=== PATIENT | male | born 1980 | race American Indian/Alaskan Native ===

== ENCOUNTER 2016-09-20 12:17 | Inpatient (IN) | payer OTHER ==
[2016-09-20 13:18] LABS: Basophils % (Auto) 0.8 % (0.0-1.8); Eosinophils % (Auto) 3.1 % (0.0-4.3); Hematocrit 40.9 % (35.5-45.6); Hemoglobin 13.9 gm/dl (11.8-15.2); Mean Corpuscular HGB Conc 34 % (32-34); Mean Corpuscular Hemoglobin 28 pg (28-32); Mean Corpuscular Volume 83 fl (84-94); Platelet Count 136 K/mm3 (140-440); Red Blood Count 4.96 M/mm3 (3.65-5.03); Red Cell Distribution Width 15.5 % (13.2-15.2)
[2016-09-20 13:27] LABS: Anion Gap 17 mmol/L; Blood Urea Nitrogen 10 mg/dL (9-20); Calcium 8.8 mg/dL (8.4-10.2); Carbon Dioxide 22 mmol/L (22-30); Chloride 102.5 mmol/L (98-107); Glucose 104 mg/dL (75-100); Potassium 3.9 mmol/L (3.6-5.0); Sodium 138 mmol/L (137-145)
--- NOTE | 2016-09-20 22:43 | Emergency Department Report ---
HPI - General Chief Complaint: Altered Mental Status Time Seen by Provider: 09/20/16 22:28 - HPI HPI: Room 5 The patient is a 35-year-old male presenting with a chief complaint of forgetfulness and headache. The patient states he is concerned he may have carbon monoxide poisoning because 3-4 days ago he fell asleep in his car with the fan on and windows rolled up. The patient states his car was outdoors and not in an enclosed space/garage. The patient states the following day headache and forgetfulness. The patient states he frequently drops things from his hand sometimes because he forgets that it is there. Patient denies any preceding trauma. Patient denies any fevers. Patient admits to memory loss and headache for the past 3 days. Patient denies suicidal ideation Location: [see above] Duration: 3 days Quality: Headache, forgetfulness Severity: Moderate Modifying factors: [see above] Context: [see above] Mode of transportation: Unknown ED Past Medical Hx - Past Medical History Previous Medical History?: No - Surgical History Past Surgical History?: No - Family History Family history: no significant - Social History Smoking Status: Current Every Day Smoker (1/3 pack per day) Substance Use Type: None (denies illicit drug use), Alcohol (occasional) - Medications Home Medications: Home Medications Medication Instructions Recorded Confirmed Last Taken Type Famotidine [Pepcid] 20 mg PO BID #60 tablet 08/22/13 Unknown Rx Loratadine [Claritin] 10 mg PO DAILY #30 tablet 08/22/13 Unknown Rx predniSONE [Deltasone] 50 mg PO QDAY #5 tab 08/22/13 Unknown Rx ED Review of Systems ROS: Stated complaint: CONFUSED/HEADACHE Other details as noted in HPI Comment: All other systems reviewed and negative Constitutional: denies: chills, fever Eyes: denies: eye pain, eye discharge, vision change ENT: denies: ear pain, throat pain Respiratory: denies: cough, shortness of breath, wheezing Cardiovascular: denies: chest pain, palpitations Endocrine: no symptoms reported Gastrointestinal: denies: abdominal pain, nausea, diarrhea Genitourinary: denies: urgency, dysuria Musculoskeletal: denies: back pain, joint swelling, arthralgia Skin: denies: rash, lesions Neurological: headache, other (memory loss) Psychiatric: denies: anxiety, depression, suicidal thoughts Hematological/Lymphatic: denies: easy bleeding, easy bruising Physical Exam - Physical Exam Vital Signs: Vital Signs 09/20/16 09/20/16 12:33 20:10 Temperature 98.2 F 98.4 F Pulse Rate 66 72 Respiratory 16 20 Rate Blood Pressure 121/80 126/81 O2 Sat by Pulse 100 100 Oximetry Physical Exam: GENERAL: The patient is well-developed well-nourished male sitting on stretcher not appearing to be in acute distress. [] HEENT: Normocephalic. Atraumatic. Extraocular motions are intact. Patient has moist mucous membranes. NECK: Supple. Trachea midline CHEST/LUNGS: Clear to auscultation. There is no respiratory distress noted. HEART/CARDIOVASCULAR: Regular. There is no tachycardia. There is no gallop rub or murmur. ABDOMEN: Abdomen is soft, nontender. Patient has normal bowel sounds. There is no abdominal distention. SKIN: There is no rash. There is no edema. There is no diaphoresis. NEURO: The patient is awake, alert, and oriented. The patient is cooperative. The patient has no focal neurologic deficits. The patient has normal speech. Cranial nerves II through XII grossly intact, no drift. Food Handler 5+/5 bilaterally MUSCULOSKELETAL: There is no evidence of acute injury. ED Course Vital Signs 09/20/16 09/20/16 12:33 20:10 Temperature 98.2 F 98.4 F Pulse Rate 66 72 Respiratory 16 20 Rate Blood Pressure 121/80 126/81 O2 Sat by Pulse 100 100 Oximetry ED Medical Decision Making - Lab Data Result diagrams: 09/20/16 12:56 09/20/16 12:56 Laboratory Tests 09/20/16 09/20/16 09/20/16 12:56 12:56 12:56 WBC 5.0 RBC 4.96 Hgb 13.9 Hct 40.9 MCV 83 L MCH 28 MCHC 34 RDW 15.5 H Plt Count 136 L Lymph % (Auto) 26.4 [place] % (Auto) 9.1 H Eos % (Auto) 3.1 Baso % (Auto) 0.8 Lymph # 1.3 [place] # 0.5 Eos # 0.2 Baso # 0.0 Seg Neutrophils % 60.6 Seg Neutrophils # 3.0 Sodium 138 Potassium 3.9 Chloride 102.5 Carbon Dioxide 22 Anion Gap 17 BUN 10 Creatinine 1.0 Estimated GFR > 60 BUN/Creatinine Ratio 10.00 Glucose 104 H Calcium 8.8 Plasma/Serum Alcohol < 0.01 Laboratory Tests 09/20/16 09/20/16 09/20/16 12:56 12:56 12:56 WBC 5.0 RBC 4.96 Hgb 13.9 Hct 40.9 MCV 83 L MCH 28 MCHC 34 RDW 15.5 H Plt Count 136 L Lymph % (Auto) 26.4 [place] % (Auto) 9.1 H Eos % (Auto) 3.1 Baso % (Auto) 0.8 Lymph # 1.3 [place] # 0.5 Eos # 0.2 Baso # 0.0 Seg Neutrophils % 60.6 Seg Neutrophils # 3.0 PT INR APTT Carboxyhemoglobin Sodium 138 Potassium 3.9 Chloride 102.5 Carbon Dioxide 22 Anion Gap 17 BUN 10 Creatinine 1.0 Estimated GFR > 60 BUN/Creatinine Ratio 10.00 Glucose 104 H Calcium 8.8 Plasma/Serum Alcohol < 0.01 09/20/16 09/20/16 22:58 22:58 WBC RBC Hgb Hct MCV MCH MCHC RDW Plt Count Lymph % (Auto) [place] % (Auto) Eos % (Auto) Baso % (Auto) Lymph # [place] # Eos # Baso # Seg Neutrophils % Seg Neutrophils # PT 12.9 INR 0.98 APTT 26.8 Carboxyhemoglobin 5.2 Sodium Potassium Chloride Carbon Dioxide Anion Gap BUN Creatinine Estimated GFR BUN/Creatinine Ratio Glucose Calcium Plasma/Serum Alcohol - EKG Data -: EKG Interpreted by Tn EKG shows normal: sinus rhythm Rate: normal - EKG Data When compared to previous EKG there are: previous EKG unavailable Interpretation: nonspecific ST-T wave richard (T-wave inversions in leads 3, V2, V3) , other (right bundle-branch block.) - Radiology Data Radiology results: report reviewed (CT head), image reviewed (CT head) CT head (read by radiologist)- no acute intracranial hemorrhage is identified. Dense MCA sign is seen on the right with associated hypodensity in the right middle cerebral artery territory consistent with edema associated with subacute infarct. - Differential Diagnosis Carbon monoxide poisoning, substance abuse, ICH, intracranial mass Critical care attestation.: If time is entered above; I have spent that time in minutes in the direct care of this critically ill patient, excluding procedure time. ED Disposition Clinical Impression: CVA (cerebral vascular accident) Disposition: OP ADMITTED IP TO THIS HOSP Is pt being admited?: Yes Does the pt Need Aspirin: Yes Condition: Fair Referrals: PRIMARY CARE,MD [Primary Care Provider] - 3-5 Days Time of Disposition: 23:04 (Hospitalist notified)
--- NOTE | 2016-09-20 22:55 | Cat Scan Report ---
FINAL REPORT EXAM: CT HEAD/BRAIN WO CON HISTORY: headaches, memory loss TECHNIQUE: Noncontrast serial axial images from skullbase to vertex PRIORS: None. FINDINGS: There is no midline shift. Lateral ventricles are within normal limits for size and configuration. Basilar cisterns are patent. No acute intracranial hemorrhage is identified. Areas of relative hypodensity are seen in the right insula, right frontal lobe and right temporal lobe. There is asymmetric hyperdensity in 1 of the insular branches of the right middle cerebral artery. There is hyperdensity noted in distal right M1 segment. Mucosal thickening is seen in anterior ethmoidal air cells and left fronto ethmoidal recess. Mastoid air cells are well aerated. No acute osseous abnormality is identified. IMPRESSION: 1. No acute intracranial hemorrhage is identified. 2. Dense MCA sign is seen on the right side with associated hypodensity in the right middle cerebral artery territory consistent with edema associated with subacute infarct. The patient can be further assessed with MRI with diffusion-weighted imaging.
[2016-09-20] MEDS ORDERED: ASPIRIN PO ONE (23:00)
--- NOTE | 2016-09-20 23:28 | History and Physical Report ---
History of Present Illness Chief complaint: I have a headache History of present illness: 35 YO Male with Nicotine Dependence, Obesity, presents to ED for evaluation. Pt states that he has been experiencing a headache and inability to hold objects in his left hand, as well as memory loss for the past 4 days. The patient states he is concerned he may have carbon monoxide poisoning because he fell asleep in his car with the fan on and windows rolled up. The patient states his car was outdoors and not in an enclosed space/garage. Pt denies fever, chills, CP, Palpitations, NVD, syncope, trauma, vision changes, vertigo, productive cough, recent ill contacts, unintentional weight loss, or night sweats. Past History Past Medical History: other (Nicotine Dependence, obesity) Past Surgical History: No surgical history, Other (reviewed) Social history: single, smoking Family history: diabetes, hypertension Medications and Allergies Allergies Allergy/AdvReac Type Severity Reaction Status Date / Time No Known Allergies Allergy Verified 09/20/16 12:43 Home Medications Medication Instructions Recorded Confirmed Last Taken Type Famotidine [Pepcid] 20 mg PO BID #60 tablet 08/22/13 Unknown Rx Loratadine [Claritin] 10 mg PO DAILY #30 tablet 08/22/13 Unknown Rx predniSONE [Deltasone] 50 mg PO QDAY #5 tab 08/22/13 Unknown Rx Review of Systems All systems: negative Constitutional: weakness Exam - Constitutional Vitals: Temp Pulse Resp BP Pulse Ox 98.4 F 72 20 126/81 100 09/20/16 20:10 09/20/16 20:10 09/20/16 20:10 09/20/16 20:10 09/20/16 20:10 General appearance: Present: no acute distress, well-nourished - EENT Eyes: Present: PERRL ENT: hearing intact, clear oral mucosa - Neck Neck: Present: supple, normal ROM - Respiratory Respiratory effort: normal Respiratory: bilateral: CTA - Cardiovascular Heart Sounds: Present: S1 & S2. Absent: rub, click - Extremities Extremities: pulses symmetrical, No edema Peripheral Pulses: within normal limits - Abdominal General gastrointestinal: Present: soft, non-tender, non-distended, normal bowel sounds Male genitourinary: Present: normal - Integumentary Integumentary: Present: clear, warm, dry - Musculoskeletal Musculoskeletal: gait normal, strength equal bilaterally - Psychiatric Psychiatric: appropriate mood/affect, intact judgment & insight - Neurologic Neurologic: CNII-XII intact, moves all extremities Results - Labs CBC & Chem 7: 09/20/16 12:56 09/20/16 12:56 Labs: Abnormal lab results 09/20/16 09/20/16 Range/Units 12:56 12:56 MCV 83 L (84-94) fl RDW 15.5 H (13.2-15.2) % Plt Count 136 L (140-440) K/mm3 [place] % (Auto) 9.1 H (0.0-7.3) % Glucose 104 H (75-100) mg/dL Assessment and Plan - Patient Problems (1) CVA (cerebral vascular accident) Current Visit: Yes Status: Acute Qualifiers: CVA mechanism: C Precerebral and cerebral artery: P Laterality of affected vessel: L Plan to address problem: Stroke protocol: MRI, MRA, Echo, carotid doppler, antiplatelet therapy. (2) Nicotine dependence Current Visit: Yes Status: Acute Qualifiers: Nicotine product type: N Substance use status: S Plan to address problem: Pt counseled, Pt quit date is 09/21/16 (3) Obesity Current Visit: Yes Status: Acute Qualifiers: Obesity type: O Obesity severity: O Plan to address problem: Pt counseled regarding increased physical activity, balanced diet. (4) DVT prophylaxis Current Visit: Yes Status: Acute
[2016-09-20] MEDS ORDERED: DULCOLAX PR PRN ×2 (23:30→23:35)
[2016-09-20] MEDS ORDERED: MILK OF MAGNESIA PO PRN ×2 (23:30→23:35)
[2016-09-20] MEDS ORDERED: PHENERGAN PR PRN ×2 (23:30→23:35)
[2016-09-20] MEDS ORDERED: ZOFRAN IV PRN ×2 (23:30→23:35)
[2016-09-20] MEDS ORDERED: DUONEB 0.5 MG-3 MG/3 ML SOLN IH PRN (23:30)
[2016-09-20] MEDS ORDERED: REGLAN PO PRN ×2 (23:30→23:35)
[2016-09-20] MEDS ORDERED: SODIUM CHLORIDE FLUSH SYRINGE 10 ML IV PRN (23:30)
[2016-09-20 23:32] LABS: INR 0.98 (0.87-1.13)
[2016-09-20 23:33] LABS: Partial Thromboplastin Time 26.8 Sec. (24.2-36.6)
[2016-09-20] MEDS ORDERED: SODIUM CHLORIDE FLUSH SYRINGE 10 ML INJ PRN (23:35)
[2016-09-20] MEDS ORDERED: TYLENOL PO PRN (23:35)
[2016-09-20 23:37] LABS: Urine Drugs of Abuse Note Disclamer
[2016-09-20 23:51] LABS: Bilirubin,Urine NEG (Negative); Blood,Urine NEG (Negative); Ketones,Urine NEG (Negative); Leukocyte Esterase,Urine NEG (Negative); Nitrite,Urine NEG (Negative); Protein,Urine <15 mg/dL mg/dL (Negative); WBC,Urine < 1.0 /HPF (0.0-6.0)
[2016-09-20] MEDS ORDERED: PROVENTIL IH PRN (23:51)
[2016-09-20 23:52] LABS: RBC,Urine < 1.0 /HPF (0.0-6.0)
--- NOTE | 2016-09-21 09:53 | Admit Criteria Form ---
Admission Criteria Documentation: STROKE: ISCHEMIC Clinical Indications for Admission to Inpatient Care (Place 'X' for any and all applicable criteria): Admission is indicated for ANY ONE of the following(1)(2)(3)(4): [X]I. Acute stroke Extended stay beyond goal length of stay may be needed for(1)(2) [ ]a) Major deficit or clinical deterioration [ ]b) Hospital-acquired infection (eg, urinary tract infection, pneumonia) [ ]c) Embolic cause of stroke [ ]d) Venous thromboembolism(9) [ ]e) Seizures [ ]f) Bleeding (eg, cerebral) [ ]g) Increased intracranial pressure [ ]h) Comorbidities [ ]i) Surgical intervention The original [facility] content created by [employer] has been revised. The portions of the content which have been revised are identified through the use of italic text or in bold, and [facility] has neither reviewed nor approved the modified material. All other unmodified content is copyright [facility]. Please see references footnoted in the original [facility] edition 2016 Admission Criteria Met: Yes
--- NOTE | 2016-09-21 10:13 | Magnetic Resonance Report ---
MRI BRAIN WITHOUT CONTRAST INDICATION: Stroke. COMPARISON: Head CT from last night. FINDINGS: Noncontrast multiplanar and multisequence MRI of the brain demonstrates acute right MCA infarct with greatest confluent right frontotemporal involvement measuring 8.1 x 3.6 cm. Multiple other smaller foci of acute restricted diffusion also noted in the right frontal and parietal lobes. Mild edema/effacement of the atrium of the right lateral ventricle noted. Otherwise normal ventricles and sulci. Hemosiderin deposition, axial series 5, images 11-15 supports right MCA thrombus, hyperdense on prior CT. Mild periventricular FLAIR and T2 weighted hyperintensities. Some motion artifact. No abnormal extra-axial masses or fluid collections. Normal remainder major vascular flow voids. Normal posterior fossa with preserved basilar cisterns and symmetric seventh and eighth nerve complexes. Normal eye globes. Mild bilateral ethmoid, right maxillary and left frontal sinus mucosal thickening. Slightly hypoplastic right frontal sinus. Clear remainder imaged frontal sinuses and mastoid air cells. Normal midline structures without evidence of Chiari malformation. CONCLUSION: Large acute right MCA territory infarct and mild sinusitis, as described. Please correlate. Thank you for the opportunity to participate in this patient's care.
--- NOTE | 2016-09-21 10:19 | Magnetic Resonance Report ---
MRA HEAD WITHOUT CONTRAST INDICATION: Stroke. COMPARISON: None similar. FINDINGS: MRA of the head performed without intravenous contrast and demonstrates complete occlusion of the right MCA, approximately 1 cm from its ICA origin. Its further distal branches also not visualized. No other flow-limiting stenosis, occlusion or vascular malformation. Please note that detection of aneurysms less than 5 mm is limited on this exam. CONCLUSION: Right MCA thrombus/occlusion with normal remainder the [place], as described. Thank you for the opportunity to participate in this patient's care.
[2016-09-21] MEDS: PEPCID PO SCH ×2 (10:46→22:24)
[2016-09-21] MEDS: CLARITIN PO SCH (10:46)
[2016-09-21] MEDS: ASPIRIN PO SCH (10:46)
[2016-09-21] MEDS: TYLENOL PO PRN ×3 (10:50→22:24)
--- NOTE | 2016-09-21 13:38 | Consultation ---
History of Present Illness Consult date: 09/21/16 Requesting physician: FERCHO ZULUAGA Reason for Consult: stroke Chief complaint: confusion, dropping things L hand History of present illness: 35 YO M Hx Sickle cell trait and Tob abuse p/w wake up confusion, memory difficulties and dropping things from L hand on 09/18. Sx are constant. There are no clear aggravating, relieving or temporal factors. Severity was enough to cause inability to effectively walk or use L hand as he is bumping into [place]. Past History Past Medical History: other (Nicotine Dependence, obesity) Past Surgical History: No surgical history, Other (reviewed) Social history: single, smoking Family history: diabetes, hypertension Medications and Allergies Allergies Allergy/AdvReac Type Severity Reaction Status Date / Time No Known Allergies Allergy Verified 09/20/16 12:43 Home Medications Medication Instructions Recorded Confirmed Last Taken Type Famotidine [Pepcid] 20 mg PO BID #60 tablet 08/22/13 Unknown Rx Loratadine [Claritin] 10 mg PO DAILY #30 tablet 08/22/13 Unknown Rx predniSONE [Deltasone] 50 mg PO QDAY #5 tab 08/22/13 Unknown Rx Active Meds: Active Medications Acetaminophen (Tylenol) 650 mg PO Q4H PRN PRN Reason: Pain, Mild (1-3) Last Admin: 09/21/16 10:50 Dose: 650 mg Albuterol (Proventil) 2.5 mg IH Q6HRT PRN PRN Reason: Shortness Of Breath Aspirin (Aspirin) 325 mg PO QDAY [facility] Last Admin: 09/21/16 10:46 Dose: 325 mg Bisacodyl (Dulcolax) 10 mg NV QDAY PRN PRN Reason: Constipation Famotidine (Pepcid) 20 mg PO BID [facility] Last Admin: 09/21/16 10:46 Dose: 20 mg Loratadine (Claritin) 10 mg PO DAILY [facility] Last Admin: 09/21/16 10:46 Dose: 10 mg Magnesium Hydroxide (Milk Of Magnesia) 30 ml PO Q4H PRN PRN Reason: Constipation Metoclopramide HCl (Reglan) 10 mg PO Q6H PRN PRN Reason: Nausea And Vomiting Ondansetron HCl (Zofran) 4 mg IV Q8H PRN PRN Reason: N/V unrelieved by Reglan Promethazine HCl (Phenergan) 25 mg NV Q6H PRN PRN Reason: Nausea And Vomiting Simvastatin (Zocor) 20 mg PO QHS JARROD Sodium Chloride (Sodium Chloride Flush Syringe 10 Ml) 10 ml IV PRN PRN PRN Reason: LINE FLUSH Review of Systems All systems: negative Neurological: weakness (L hand), parathesias (b/l arms), numbness (b/l arms), tingling (b/l arms many years), headaches, confusion, memory loss, gait dysfunction, motor disturbance, sensory deficit, burning pain (b/l arms), no seizures, no vertigo, no convulsions Physical Examination - Vital Signs Vital Signs: Vital Signs Temp Pulse Resp BP Pulse Ox 98.2 F 66 16 121/80 100 09/20/16 12:33 09/20/16 12:33 09/20/16 12:33 09/20/16 12:33 09/20/16 12:33 - Constitutional General appearance: comfortable - EENT EENT: Present: ATNC, PERRL, mucous membranes moist, hearing intact, vision intact - Respiratory Respiratory: Present: chest non-tender, normal breath sounds, no respiratory distress - Cardiovascular Cardiovascular: Present: regular rate Extremities: Present: no peripheral edema bilatateraly, no clubbing, cyanosis, no inflammation, no ischemia or petechiae - Gastrointestinal Gastrointestinal: Present: normoactive bowel sounds, soft, non-distended - Integumentary Integumentary: Present: normal - Neurologic Cranial nerve examination: PERRL, EOMI, VFF, V1/V2/V3 grossly intact, tongue midline, intact, intact shoulder shrug, Intact Vestibulo-ocular r, intact corneal reflex, facial droop (mild on L), normal palatal elevation Speech examination: intact Sensorimotor examination: pronator drift (slight L hand), hemiparesis (faint fine motor on L), hemineglect (on L) Detailed motor examination: grossly full strength in Motor examination - right side: 5/5: biceps, triceps, wrist flexion, wrist extension, box liner, hip flexors, knee extensors, dorsiflexion, toe extension (EHL) , plantarflexion Motor examination - left side: 5/5: biceps, triceps, wrist flexion, wrist extension, box liner, hip flexors, knee extensors, dorsiflexion, toe extension (EHL) , plantarflexion Detailed sensory examination: intact, light touch, stereognosia (neglect to DSS) , other Reflex and gait examination: Babinski's sign (on L) Reflexes: 3+: ankle (on L), bicep, knee, tricep - Musculoskeletal Musculoskeletal: Present: no fluid collection, no pain, normal range of motion - Psychiatric Psychiatric: Present: mood/affect appropriate, cooperative Results - Laboratory Findings CBC and BMP: 09/20/16 12:56 09/20/16 12:56 Abnormal Lab Findings: Abnormal Labs 09/21/16 07:41 HDL Cholesterol 36 L Assessment and Plan 35 YO M Hx Sickle cell trait and Tob abuse p/w wake up R MCA stroke syn confirmed on MRI w/ R frontotemporoparietal infarct and M1 thrombus. Plan and Recommendation: 1. No indication for pharmacologic thrombolysis with IV tPA or mechanical thrombectomy due to last known normal > 12 hrs from presentation. Current NIHSS 3. 2. Telemetry bed w/ Q4 hour neuro checks 3. Vascular Imaging: CTA Head/Neck w/ Contrast OR Bilateral Carotid Duplex U/S 4. CINDA w/ bubble to eval for possible cardiac source of embolism 5. Serum Labs: HgA1c, LDL. Stroke in [place] Eval: ESR/CRP, Coags, Toxicology, RPR/VDRL, If Febrile-BCx, LP; Hypercoag screen-Protein C Activity, Protein S Ag , Antithrombin III, Activated Protein C resistance, Factor V Leiden, RVVT or APLAbs, Beta-2 GP Ab, Fibrinogen, Prothrombin gene 52771S mutation, MTHFR C677T , MARVIN-1, HIV, JULIUS, Lactic Acid, Homocysteine, Cryoglobulin, Complement level, ANCA, Scl-70 Ab, anti-centromere Ab, Anti-Ro (SSA)/Anti-La (SSB), AMARIS, Antiproteinase 3, Lipoprotein A 6. Can lower MAPs by 10-15% daily to reach goal SBP 120-160 as permissive HTN period complete. 7. Secondary stroke prevention: ASA 325mg Daily & upgrade to full dose statin therapy (Crestor 20mg or 40mg OR Lipitor 40mg or 80mg Daily OR Zocor 40mg QDay) for goal LDL < 70. No firm indication at this point for therapeutic anticoagulation as pt has not had AFib captured on telemetry monitoring. 8. F/E/N: isotonic IVF prn, prn replete, bedside speech/swallow eval prior to PO intake. 9. DVT Prophylaxis 10. Stroke education, PT/OT/Speech Therapy consults, CM evaluation 11. For any changes in neurologic status, pls obtain STAT CTH w/o contrast and call neurology
--- NOTE | 2016-09-21 14:16 | Progress Note ---
Assessment and Plan 35 YO Male with Nicotine Dependence, Obesity, presents to ED for evaluation. Pt states that he has been experiencing a headache and inability to hold objects in his left hand, as well as memory loss for the past 4 days. (1) Rt MCA CVA (cerebral vascular accident) admitted with Stroke protocol: MRI, MRA, showed rt MCA infract neurology recommended CINDA cont aspirin, lipitor (2) Nicotine dependence Pt counseled for cessation (3) Obesity Pt counseled regarding increased physical activity, balanced diet. (4) DVT prophylaxis lovenox Subjective Date of service: 09/21/16 Interval history: Patient seen and examined. Medical records and medication list reviewed. No acute event overnight noted by the RN. Patient denies any chest pain or difficulty breathing. Patient is tolerating diet. MRI showed rt MCA thrombus Discussed plan of care at bedside with patient. Objective - Exam Narrative Exam: GENERAL: well-developed and well-nourished AAM lying on bed appeared to be in no discomfort. HEENT: Normocephalic. Atraumatic. No conjunctival congestion or icterus. Patient has moist mucous membranes. NECK: Supple. Trachea midline. CHEST/LUNGS: Clear to auscultated bilaterally, breathing nonlabored. No wheezes crackles or rhonchi. HEART/CARDIOVASCULAR: Regular in rate and rhythm. S1 and S2 positive. ABDOMEN: Abdomen is soft, nontender. Patient has normal bowel sounds. SKIN: There is no rash. Warm and dry. NEURO: pronator drift (slight L hand), hemiparesis (faint fine motor on L), hemineglect (on L). Follows command. MUSCULOSKELETAL: No joint effusion or tenderness. EXTRIMITY: No edema, no cyanosis or clubbing. PSYCH: Cooperative. - Constitutional Vitals: Vital Signs - 12hr 09/21/16 09/21/16 05:56 14:01 Temperature 97.6 F 97.4 F L Pulse Rate [ 53 L Apical] Pulse Rate [ 57 L Left Radial] Respiratory 18 18 Rate Blood Pressure 118/65 121/82 [Right Arm] O2 Sat by Pulse 99 100 Oximetry - Labs CBC & Chem 7: 09/20/16 12:56 09/20/16 12:56 Labs: Abnormal lab results 09/21/16 Range/Units 07:41 HDL Cholesterol 36 L (40-59) mg/dL
[2016-09-21 14:44] LABS: C-Reactive Protein 0.5 mg/dL (0.00-1.30)
[2016-09-21 14:53] LABS: HIV-1 Antigen p24 Non React (Non React); HIVR-1/2 Ab Non React (Non React)
[2016-09-21 14:54] LABS: Erythrocyte Sedimentation Rate 4 mm/Hr (0-20)
[2016-09-21] MEDS ORDERED: NACL ONE ×2 (16:33→16:45)
--- NOTE | 2016-09-21 18:12 | Cat Scan Report ---
FINAL REPORT PROCEDURE: CT ANGIO HEAD TECHNIQUE: Computerized tomographic angiography of the head was performed after the IV injection of iodinated nonionic contrast including image processing. The image data was postprocessed using 2-dimensional multiplanar reformatted (MPR) and 3-dimensional (MIP and/or volume rendered) techniques. HISTORY: Right MCA CVA COMPARISON: Head CT from the previous day FINDINGS: Vertebral arteries appear codominant. Bilateral posterior communicating arteries are seen. Both P1 segments are present. Anterior communicating artery cannot be identified. It may be very small or absent. There is occlusion of the right MCA near the M2 region. Right MCA CVA changes in the right temporal, frontal, and parietal lobes appear similar to prior exam without significant mass effect or suggestion of hemorrhagic transformation. No areas of calcified plaque are seen. No aneurysm formation is seen. IMPRESSION: Right MCA occlusion is suspected. It may be from embolus, as no atherosclerotic changes are seen in the [place].
--- NOTE | 2016-09-21 18:16 | Cat Scan Report ---
FINAL REPORT PROCEDURE: CT ANGIO NECK TECHNIQUE: Computerized tomographic angiography of the neck was performed after the IV injection of iodinated nonionic contrast including image processing. The image data was postprocessed using 2-dimensional multiplanar reformatted (MPR) and 3-dimensional (MIP and/or volume rendered) techniques. HISTORY: Right MCA CVA COMPARISON: No prior studies are available for comparison. Note: Assessment of carotid artery stenosis is based on measurement of the distal internal carotid artery diameter as the denominator for stenosis calculations and the [place] Symptomatic Carotid Endarterectomy Trial (NASCET) stenosis criteria . CPT 3100F FINDINGS: Artifacts from venous reflux of IV contrast in the left lower neck obscure the proximal left vertebral artery. Remaining visualized portions of the vertebral arteries reveals them to be codominant without stenosis. There is no stenosis seen of the internal carotid or common carotid arteries in the neck. Mild reactive lymph nodes are seen in the neck. Thyroid gland appears normal. IMPRESSION: No vertebral or carotid artery stenosis is seen.
[2016-09-21] MEDS ORDERED: ZOCOR PO SCH ×2 (22:00)
[2016-09-22] MEDS: TYLENOL PO PRN ×2 (09:57→21:05)
[2016-09-22] MEDS: PEPCID PO SCH ×2 (09:58→22:08)
[2016-09-22] MEDS: CLARITIN PO SCH (09:58)
[2016-09-22] MEDS: ASPIRIN PO SCH (09:58)
--- NOTE | 2016-09-22 13:58 | Progress Note ---
Assessment and Plan 35 YO M Hx Sickle cell trait and Tob abuse p/w wake up R MCA stroke syn confirmed on MRI w/ R frontotemporoparietal infarct and M1 thrombus. CTA H/N neg aside from R M1 thrombus. LDL 132. Neg serologies: HIV, ESR, Fibrinogen, Coags, UTox Plan and Recommendation: 1. No indication for pharmacologic thrombolysis with IV tPA or mechanical thrombectomy due to last known normal > 12 hrs from presentation. Current NIHSS 3. 2. Telemetry bed w/ Q4 hour neuro checks 3. CINDA w/ bubble to eval for possible cardiac source of embolism 4. Serum Labs: HgA1c, LDL. Stroke in [place] Eval: CRP, Coags, RPR/VDRL, Hypercoag screen-Protein C Activity, Protein S Ag, Antithrombin III, Activated Protein C resistance, Factor V Leiden, RVVT or APLAbs, Beta-2 GP Ab, Prothrombin gene 09843F mutation, MTHFR C677T, MARVIN-1, JULIUS, Lactic Acid, Homocysteine, Cryoglobulin, Complement level, ANCA, Scl-70 Ab, anti-centromere Ab, Anti-Ro (SSA)/Anti-La (SSB), AMARIS, Antiproteinase 3, Lipoprotein A 5. Can lower MAPs by 10-15% daily to reach goal SBP 120-160 as permissive HTN period complete. 6. Secondary stroke prevention: ASA 325mg Daily & upgrade to full dose statin therapy (Crestor 20mg or 40mg OR Lipitor 40mg or 80mg Daily OR Zocor 40mg QDay) for goal LDL < 70. No firm indication at this point for therapeutic anticoagulation as pt has not had AFib captured on telemetry monitoring. 7. F/E/N: isotonic IVF prn, prn replete, bedside speech/swallow eval prior to PO intake. 8. DVT Prophylaxis 9. Stroke education, PT/OT/Speech Therapy consults, CM evaluation 10. For any changes in neurologic status, pls obtain STAT CTH w/o contrast and call neurology Subjective Date of service: 09/22/16 Principal diagnosis: R MCA stroke Interval history: no change. no new complaints. Objective - Vital Sign Vital Signs - 12hr 09/22/16 09/22/16 09/22/16 06:05 07:10 08:51 Temperature 97.6 F Pulse Rate 56 L Pulse Rate [ 48 L Apical] Pulse Rate [ Left Radial] Pulse Rate [ Right] Respiratory 18 Rate Blood Pressure 106/66 [Right Arm] O2 Sat by Pulse 98 96 Oximetry 09/22/16 09/22/16 10:34 13:01 Temperature 97.4 F L 97.4 F L Pulse Rate Pulse Rate [ Apical] Pulse Rate [ 63 Left Radial] Pulse Rate [ 54 L Right] Respiratory 18 18 Rate Blood Pressure 112/67 118/74 [Right Arm] O2 Sat by Pulse 100 94 Oximetry - General Apperance Constitutional: comfortable - EENT EENT: ATNC, PERRL, mucous membranes moist, hearing intact, vision intact - Respiratory Respiratory: chest non-tender, normal breath sounds, no respiratory distress - Cardiovascular Cardiovascular: regular rate Extremities: no peripheral edema bilat, no clubbing, cyanosis, no inflammation, no ischemia or petechiae - Gastrointestinal Gastrointestinal: normoactive bowel sounds, soft, non-distended - Integumentary Integumentary: normal - Neurologic Cranial nerve examination: PERRL, EOMI, VFF, V1/V2/V3 grossly intact, face symmetric, tongue midline, intact, intact shoulder shrug, Intact Vestibulo- ocular r, intact corneal reflex, facial droop (mild on L), normal palatal elevation Speech examination: intact Detailed motor examination: grossly full strength in, other (fine motor L weak) Motor examination - right side: 5/5: biceps, triceps, wrist flexion, wrist extension, radiologist chief of breast imaging, hip flexors, knee extensors, dorsiflexion, toe extension (EHL) , plantarflexion Motor examination - left side: 5/5: biceps, triceps, wrist flexion, wrist extension, radiologist chief of breast imaging, hip flexors, knee extensors, dorsiflexion, toe extension (EHL) , plantarflexion Detailed sensory examination: extinction Reflex and gait examination: Babinski's sign (on L) Reflexes: 3+: ankle, bicep, knee, tricep - Musculoskeletal Musculoskeletal: no fluid collection, no pain, normal range of motion - Psychiatric Psychiatric: mood/affect appropriate, cooperative - Laboratory Findings CBC and BMP: 09/20/16 12:56 09/20/16 12:56 Abnormal Lab Findings: Abnormal Labs 09/21/16 09/21/16 07:41 14:15 LDL Cholesterol Direct 132 H HDL Cholesterol 36 L
--- NOTE | 2016-09-22 20:18 | Progress Note ---
Assessment and Plan Assessment and plan: 35 YO Male with Nicotine Dependence, Obesity, presents to ED for evaluation. Pt states that he has been experiencing a headache and inability to hold objects in his left hand, as well as memory loss for the past 4 days. 1. Acute R MCA territory infarct CT head and brain MRI showing large acute MCA infarct (8 x 3 cm) CINDA was ordered to assess if cardioembolic source present Started on aspirin and Lipitor PT/OT/ST Neurology consulted and additional workup in progress given his age ( hypercoagulopathy workup) 2. Nicotine dependence Counseled regarding importance of quitting 3. DVT prophylaxis History Interval history: no events overnoght and no new complaints; continues to drop objects from left hand/left side neglect Hospitalist Physical - Constitutional Vitals: Temp Pulse Resp BP Pulse Ox 97.3 F L 58 L 18 110/61 97 09/22/16 18:36 09/22/16 18:36 09/22/16 18:36 09/22/16 18:36 09/22/16 18:36 General appearance: Present: no acute distress, well-nourished - EENT Eyes: Present: PERRL, EOM intact. Absent: scleral icterus, conjunctival injection - Neck Neck: Present: supple, normal ROM. Absent: masses or JVD - Respiratory Respiratory effort: normal Respiratory: bilateral: CTA, negative: rales, rhonchi - Cardiovascular Rhythm: regular Heart Sounds: Present: S1 & S2. Absent: systolic murmur - Extremities Extremities: no ischemia - Abdominal General gastrointestinal: soft, non-tender, non-distended, normal bowel sounds - Psychiatric Psychiatric: cooperative - Neurologic Neurologic: other (left facial droop, left-sided hemiparesis, left hemineglect) Results - Labs CBC & Chem 7: 09/20/16 12:56 09/20/16 12:56 Labs: Laboratory Last Values WBC 5.0 K/mm3 (4.5-11.0) 09/20/16 12:56 RBC 4.96 M/mm3 (3.65-5.03) 09/20/16 12:56 Hgb 13.9 gm/dl (11.8-15.2) 09/20/16 12:56 Hct 40.9 % (35.5-45.6) 09/20/16 12:56 MCV 83 fl (84-94) L 09/20/16 12:56 MCH 28 pg (28-32) 09/20/16 12:56 MCHC 34 % (32-34) 09/20/16 12:56 RDW 15.5 % (13.2-15.2) H 09/20/16 12:56 Plt Count 136 K/mm3 (140-440) L 09/20/16 12:56 Lymph % (Auto) 26.4 % (13.4-35.0) 09/20/16 12:56 [place] % (Auto) 9.1 % (0.0-7.3) H 09/20/16 12:56 Eos % (Auto) 3.1 % (0.0-4.3) 09/20/16 12:56 Baso % (Auto) 0.8 % (0.0-1.8) 09/20/16 12:56 Lymph # 1.3 K/mm3 (1.2-5.4) 09/20/16 12:56 [place] # 0.5 K/mm3 (0.0-0.8) 09/20/16 12:56 Eos # 0.2 K/mm3 (0.0-0.4) 09/20/16 12:56 Baso # 0.0 K/mm3 (0.0-0.1) 09/20/16 12:56 Seg Neutrophils % 60.6 % (40.0-70.0) 09/20/16 12:56 Seg Neutrophils # 3.0 K/mm3 (1.8-7.7) 09/20/16 12:56 ESR 4 mm/Hr (0-20) 09/21/16 14:15 PT 12.9 Sec. (12.2-14.9) 09/20/16 22:58 INR 0.98 (0.87-1.13) 09/20/16 22:58 APTT 26.8 Sec. (24.2-36.6) 09/20/16 22:58 Fibrinogen 357 mg/dl (211-480) 09/21/16 14:15 Carboxyhemoglobin 5.2 09/20/16 22:58 Sodium 138 mmol/L (137-145) 09/20/16 12:56 Potassium 3.9 mmol/L (3.6-5.0) 09/20/16 12:56 Chloride 102.5 mmol/L (98-107) 09/20/16 12:56 Carbon Dioxide 22 mmol/L (22-30) 09/20/16 12:56 Anion Gap 17 mmol/L 09/20/16 12:56 BUN 10 mg/dL (9-20) 09/20/16 12:56 Creatinine 1.0 mg/dL (0.8-1.5) 09/20/16 12:56 Estimated GFR > 60 ml/min 09/20/16 12:56 BUN/Creatinine Ratio 10.00 % 09/20/16 12:56 Glucose 104 mg/dL (75-100) H 09/20/16 12:56 Lactic Acid 0.90 mmol/L (0.7-2.0) 09/21/16 14:15 Calcium 8.8 mg/dL (8.4-10.2) 09/20/16 12:56 C-Reactive Protein 0.50 mg/dL (0.00-1.30) 09/21/16 14:15 Triglycerides 94 mg/dL (2-149) 09/21/16 07:41 Cholesterol 163 mg/dL (50-199) 09/21/16 07:41 LDL Cholesterol Direct 132 mg/dL (50-130) H 09/21/16 14:15 HDL Cholesterol 36 mg/dL (40-59) L 09/21/16 07:41 Cholesterol/HDL Ratio 4.52 % 09/21/16 07:41 Urine Color Straw (Yellow) 09/20/16 23:26 Urine Turbidity Clear (Clear) 09/20/16 23:26 Urine pH 7.0 (5.0-7.0) 09/20/16 23:26 Ur Specific [place] 1.013 (1.003-1.030) 09/20/16 23:26 Urine Protein <15 mg/dl mg/dL (Negative) 09/20/16 23:26 Urine Glucose (UA) Neg mg/dL (Negative) 09/20/16 23:26 Urine Ketones Neg mg/dL (Negative) 09/20/16 23:26 Urine Blood Neg (Negative) 09/20/16 23:26 Urine Nitrite Neg (Negative) 09/20/16 23:26 Urine Bilirubin Neg (Negative) 09/20/16 23:26 Urine Urobilinogen 2.0 mg/dL (<2.0) 09/20/16 23:26 Ur Leukocyte Esterase Neg (Negative) 09/20/16 23:26 Urine WBC (Auto) < 1.0 /HPF (0.0-6.0) 09/20/16 23:26 Urine RBC (Auto) < 1.0 /HPF (0.0-6.0) 09/20/16 23:26 Urine Opiates Screen Presumptive negative 09/20/16 23:26 Urine Methadone Screen Presumptive negative 09/20/16 23:26 Ur Barbiturates Screen Presumptive negative 09/20/16 23:26 Ur Phencyclidine Scrn Presumptive negative 09/20/16 23:26 Ur Amphetamines Screen Presumptive negative 09/20/16 23:26 U Benzodiazepines Scrn Presumptive negative 09/20/16 23:26 Urine Cocaine Screen Presumptive negative 09/20/16 23:26 U Marijuana (THC) Screen Presumptive negative 09/20/16 23:26 Drugs of Abuse Note Disclamer 09/20/16 23:26 Plasma/Serum Alcohol < 0.01 gm% (0-0.07) 09/20/16 12:56 HIV 1&2 Antibody Rapid Non react (Non React) 09/21/16 14:15 HIV P24 Antigen Non react (Non React) 09/21/16 14:15 - Imaging and Cardiology CT Scan - head: report reviewed MRI - head: report reviewed Imaging and Cardiology: CINDA
[2016-09-23] MEDS ORDERED: VERSED IV ONE (10:00)
[2016-09-23] MEDS ORDERED: SUBLIMAZE IV ONE (10:00)
[2016-09-23] MEDS ORDERED: HURRICAINE ONE 20% TOPICAL SPRAY MM NR (10:00)
[2016-09-23] MEDS: CLARITIN PO SCH (12:39)
[2016-09-23] MEDS: ASPIRIN PO SCH (12:40)
[2016-09-23] MEDS: PEPCID PO SCH ×2 (12:40→22:27)
[2016-09-23] MEDS: TYLENOL PO PRN ×2 (12:40→22:26)
--- NOTE | 2016-09-23 12:51 | Event Note ---
Date: 09/23/16 I attempted to see this patient between my scheduled coverage time of 8 AM-12 PM but they were not present in the floor room. 35 YO M Hx Sickle cell trait and Tob abuse p/w wake up R MCA stroke syn confirmed on MRI w/ R frontotemporoparietal infarct and M1 thrombus. CTA H/N neg aside from R M1 thrombus. LDL 132. Neg serologies: HIV, ESR, Fibrinogen, Coags, UTox.CINDA/TTE both neg. LDL 132 Plan and Recommendation: 1. No indication for pharmacologic thrombolysis with IV tPA or mechanical thrombectomy due to last known normal > 12 hrs from presentation. Current NIHSS 3. 2. Telemetry bed w/ Q4 hour neuro checks 3. Stroke in [place] Eval: CRP, Coags, RPR/VDRL, Hypercoag screen-Protein C Activity, Protein S Ag, Antithrombin III, Activated Protein C resistance, Factor V Leiden, RVVT or APLAbs, Beta-2 GP Ab, Prothrombin gene [id number] mutation , MTHFR C677T, MARVIN-1, JULIUS, Lactic Acid, Homocysteine, Cryoglobulin, Complement level, ANCA, Scl-70 Ab, anti-centromere Ab, Anti-Ro (SSA)/Anti-La (SSB), AMARIS, Antiproteinase 3, Lipoprotein A 4. Can lower MAPs by 10-15% daily to reach goal SBP 120-160 as permissive HTN period complete. 5. Secondary stroke prevention: ASA 325mg Daily & upgrade to full dose statin therapy (Crestor 20mg or 40mg OR Lipitor 40mg or 80mg Daily OR Zocor 40mg QDay) for goal LDL < 70. No firm indication at this point for therapeutic anticoagulation as pt has not had AFib captured on telemetry monitoring. 6. F/E/N: isotonic IVF prn, prn replete, bedside speech/swallow eval prior to PO intake. 7. DVT Prophylaxis 8. Stroke education, PT/OT/Speech Therapy consults, CM evaluation 9. For any changes in neurologic status, pls obtain STAT CTH w/o contrast and call neurology 10. If pt remains stable no neurologic contraindication to discharge w/ outpt neuro follow up for results of above testing 11. We can revisit as needed
--- NOTE | 2016-09-23 21:29 | Progress Note ---
Assessment and Plan Assessment and plan: 35 YO Male, smoker, presented for headache, inability to hold objects in his left hand and memory loss 1. Acute R MCA territory infarct CT head and brain MRI showing large acute MCA infarct (8 x 3 cm) CINDA obtained and showing normal LV function, no thrombus in the left atrial appendage, no atrial septal defect Started on aspirin and Lipitor PT/OT/ST Neurology consulted and additional workup in progress given his age ( hypercoagulopathy workup) 2. Nicotine dependence Counseled regarding importance of quitting 3. DVT prophylaxis History Interval history: no specific complaints Hospitalist Physical - Constitutional Vitals: Temp Pulse Resp BP Pulse Ox 98 F 54 L 18 135/76 99 09/23/16 16:00 09/23/16 16:00 09/23/16 16:00 09/23/16 16:00 09/23/16 16:00 General appearance: Present: no acute distress, well-nourished - EENT Eyes: Present: PERRL, EOM intact. Absent: scleral icterus, conjunctival injection - Neck Neck: Present: supple, normal ROM. Absent: masses or JVD - Respiratory Respiratory effort: normal Respiratory: bilateral: CTA, negative: rhonchi, wheezing - Cardiovascular Rhythm: regular Heart Sounds: Present: S1 & S2. Absent: systolic murmur - Extremities Extremities: no ischemia, No edema - Abdominal General gastrointestinal: soft, non-tender, non-distended, normal bowel sounds - Psychiatric Psychiatric: cooperative - Neurologic Neurologic: other (slight L facial droop, strenght 4/5 left, L hemineglect) Results - Labs CBC & Chem 7: 09/20/16 12:56 09/20/16 12:56 Labs: Laboratory Last Values WBC 5.0 K/mm3 (4.5-11.0) 09/20/16 12:56 RBC 4.96 M/mm3 (3.65-5.03) 09/20/16 12:56 Hgb 13.9 gm/dl (11.8-15.2) 09/20/16 12:56 Hct 40.9 % (35.5-45.6) 09/20/16 12:56 MCV 83 fl (84-94) L 09/20/16 12:56 MCH 28 pg (28-32) 09/20/16 12:56 MCHC 34 % (32-34) 09/20/16 12:56 RDW 15.5 % (13.2-15.2) H 09/20/16 12:56 Plt Count 136 K/mm3 (140-440) L 09/20/16 12:56 Lymph % (Auto) 26.4 % (13.4-35.0) 09/20/16 12:56 [place] % (Auto) 9.1 % (0.0-7.3) H 09/20/16 12:56 Eos % (Auto) 3.1 % (0.0-4.3) 09/20/16 12:56 Baso % (Auto) 0.8 % (0.0-1.8) 09/20/16 12:56 Lymph # 1.3 K/mm3 (1.2-5.4) 09/20/16 12:56 [place] # 0.5 K/mm3 (0.0-0.8) 09/20/16 12:56 Eos # 0.2 K/mm3 (0.0-0.4) 09/20/16 12:56 Baso # 0.0 K/mm3 (0.0-0.1) 09/20/16 12:56 Seg Neutrophils % 60.6 % (40.0-70.0) 09/20/16 12:56 Seg Neutrophils # 3.0 K/mm3 (1.8-7.7) 09/20/16 12:56 ESR 4 mm/Hr (0-20) 09/21/16 14:15 PT 12.9 Sec. (12.2-14.9) 09/20/16 22:58 INR 0.98 (0.87-1.13) 09/20/16 22:58 APTT 26.8 Sec. (24.2-36.6) 09/20/16 22:58 Fibrinogen 357 mg/dl (211-480) 09/21/16 14:15 Carboxyhemoglobin 5.2 09/20/16 22:58 Sodium 138 mmol/L (137-145) 09/20/16 12:56 Potassium 3.9 mmol/L (3.6-5.0) 09/20/16 12:56 Chloride 102.5 mmol/L (98-107) 09/20/16 12:56 Carbon Dioxide 22 mmol/L (22-30) 09/20/16 12:56 Anion Gap 17 mmol/L 09/20/16 12:56 BUN 10 mg/dL (9-20) 09/20/16 12:56 Creatinine 1.0 mg/dL (0.8-1.5) 09/20/16 12:56 Estimated GFR > 60 ml/min 09/20/16 12:56 BUN/Creatinine Ratio 10.00 % 09/20/16 12:56 Glucose 104 mg/dL (75-100) H 09/20/16 12:56 Lactic Acid 0.90 mmol/L (0.7-2.0) 09/21/16 14:15 Calcium 8.8 mg/dL (8.4-10.2) 09/20/16 12:56 C-Reactive Protein 0.50 mg/dL (0.00-1.30) 09/21/16 14:15 Triglycerides 94 mg/dL (2-149) 09/21/16 07:41 Cholesterol 163 mg/dL (50-199) 09/21/16 07:41 LDL Cholesterol Direct 132 mg/dL (50-130) H 09/21/16 14:15 HDL Cholesterol 36 mg/dL (40-59) L 09/21/16 07:41 Cholesterol/HDL Ratio 4.52 % 09/21/16 07:41 Urine Color Straw (Yellow) 09/20/16 23:26 Urine Turbidity Clear (Clear) 09/20/16 23:26 Urine pH 7.0 (5.0-7.0) 09/20/16 23:26 Ur Specific [place] 1.013 (1.003-1.030) 09/20/16 23:26 Urine Protein <15 mg/dl mg/dL (Negative) 09/20/16 23:26 Urine Glucose (UA) Neg mg/dL (Negative) 09/20/16 23:26 Urine Ketones Neg mg/dL (Negative) 09/20/16 23:26 Urine Blood Neg (Negative) 09/20/16 23:26 Urine Nitrite Neg (Negative) 09/20/16 23:26 Urine Bilirubin Neg (Negative) 09/20/16 23:26 Urine Urobilinogen 2.0 mg/dL (<2.0) 09/20/16 23:26 Ur Leukocyte Esterase Neg (Negative) 05/21/17 23:26 Urine WBC (Auto) < 1.0 /HPF (0.0-6.0) 09/20/16 23:26 Urine RBC (Auto) < 1.0 /HPF (0.0-6.0) 09/20/16 23:26 Urine Opiates Screen Presumptive negative 09/20/16 23:26 Urine Methadone Screen Presumptive negative 09/20/16 23:26 Ur Barbiturates Screen Presumptive negative 09/20/16 23:26 Ur Phencyclidine Scrn Presumptive negative 09/20/16 23:26 Ur Amphetamines Screen Presumptive negative 09/20/16 23:26 U Benzodiazepines Scrn Presumptive negative 09/20/16 23:26 Urine Cocaine Screen Presumptive negative 09/20/16 23:26 U Marijuana (THC) Screen Presumptive negative 09/20/16 23:26 Drugs of Abuse Note Disclamer 09/20/16 23:26 Plasma/Serum Alcohol < 0.01 gm% (0-0.07) 09/20/16 12:56 HIV 1&2 Antibody Rapid Non react (Non React) 09/21/16 14:15 HIV P24 Antigen Non react (Non React) 09/21/16 14:15
--- NOTE | 2016-09-24 08:28 | Vascular Lab Report ---
CAROTID DUPLEX STUDY: RIGHT PSVEDV CCA PROX:`9911 CCA DIST:7615 ICA PROX:3414 ICA MID:5618 ICA DIST:4115 ECA: 32 VERT: 46 13 LEFT PSVEDV CCA PROX:26833 CCA DIST:73 8 ICA PROX:4311 ICA MID:5830 ICA DIST:5627 ECA: 46 VERT: 44 12 REASON FOR EXAM: Stroke. COMMENTS ON THE RIGHT: Doppler frequency analysis is consistent with 16 to 49 percent diameter reduction of the internal carotid artery. Minimal amount of plaque is seen. The common carotid artery is patent. The external carotid artery is patent. The vertebral artery has antegrade flow. COMMENTS ON THE LEFT: Doppler frequency analysis is consistent with 16 to 49 percent diameter reduction of the internal carotid artery. Minimal amount of plaque is seen. The common carotid artery is patent. The external carotid artery is patent. The vertebral artery has antegrade flow. IMPRESSION: Less than 50% diameter reduction in the internal carotid arteries bilaterally. Consider repeat carotid artery duplex in 12 months.
[2016-09-24] MEDS: TYLENOL PO PRN ×2 (08:52→18:19)
[2016-09-24] MEDS: CLARITIN PO SCH (10:11)
[2016-09-24] MEDS: PEPCID PO SCH ×2 (10:11→21:25)
[2016-09-24] MEDS: ASPIRIN PO SCH (10:11)
[2016-09-24 15:28] LABS: Protein S, Free 118 % normal (57-171); Protein S, Total 112 % (70-140)
[2016-09-24 18:29] LABS: Myeloperoxidase Antibody <1.0 AI (<1.0)
--- NOTE | 2016-09-24 21:05 | Progress Note ---
Assessment and Plan Assessment and plan: 35 YO Male, smoker, presented for headache, inability to hold objects in his left hand and memory loss 1. Acute R MCA territory infarct CT head and brain MRI showing large acute MCA infarct (8 x 3 cm) CINDA obtained and showing normal LV function, no thrombus in the left atrial appendage, no atrial septal defect Started on aspirin and Lipitor PT/OT/ST Neurology consulted and given his age additional hypercoagulable workup in progress - anticardiolipin +, so will consult Hematology; also family history positive for stroke (mother, aunt) 2. Nicotine dependence Counseled regarding importance of quitting 3. DVT prophylaxis History Interval history: no specific complaints mother present, updated Hospitalist Physical - Constitutional Vitals: Temp Pulse Resp BP Pulse Ox 99.0 F 64 18 119/63 98 09/24/16 18:09 09/24/16 20:48 09/24/16 20:48 09/24/16 20:48 09/24/16 20:48 General appearance: Present: no acute distress, well-nourished - EENT Eyes: Present: PERRL, EOM intact. Absent: scleral icterus, conjunctival injection - Neck Neck: Present: supple. Absent: enlarged thyroid, masses or JVD - Respiratory Respiratory effort: normal Respiratory: bilateral: CTA, negative: rhonchi, wheezing - Cardiovascular Rhythm: regular Heart Sounds: Present: S1 & S2. Absent: systolic murmur - Extremities Extremities: no ischemia - Abdominal General gastrointestinal: soft, non-tender, non-distended, normal bowel sounds - Psychiatric Psychiatric: cooperative, other (cognitive deficits) - Neurologic Neurologic: other (strength decreased left-sided, left rommel-neglect, slightly aphasic) Results - Labs CBC & Chem 7: 09/20/16 12:56 09/20/16 12:56 Labs: Laboratory Last Values WBC 5.0 K/mm3 (4.5-11.0) 09/20/16 12:56 RBC 4.96 M/mm3 (3.65-5.03) 09/20/16 12:56 Hgb 13.9 gm/dl (11.8-15.2) 09/20/16 12:56 Hct 40.9 % (35.5-45.6) 09/20/16 12:56 MCV 83 fl (84-94) L 09/20/16 12:56 MCH 28 pg (28-32) 09/20/16 12:56 MCHC 34 % (32-34) 09/20/16 12:56 RDW 15.5 % (13.2-15.2) H 09/20/16 12:56 Plt Count 136 K/mm3 (140-440) L 09/20/16 12:56 Lymph % (Auto) 26.4 % (13.4-35.0) 09/20/16 12:56 Ross % (Auto) 9.1 % (0.0-7.3) H 09/20/16 12:56 Eos % (Auto) 3.1 % (0.0-4.3) 09/20/16 12:56 Baso % (Auto) 0.8 % (0.0-1.8) 09/20/16 12:56 Lymph # 1.3 K/mm3 (1.2-5.4) 09/20/16 12:56 Ross # 0.5 K/mm3 (0.0-0.8) 09/20/16 12:56 Eos # 0.2 K/mm3 (0.0-0.4) 09/20/16 12:56 Baso # 0.0 K/mm3 (0.0-0.1) 09/20/16 12:56 Seg Neutrophils % 60.6 % (40.0-70.0) 09/20/16 12:56 Seg Neutrophils # 3.0 K/mm3 (1.8-7.7) 09/20/16 12:56 ESR 4 mm/Hr (0-20) 09/21/16 14:15 PT 12.9 Sec. (12.2-14.9) 09/20/16 22:58 INR 0.98 (0.87-1.13) 09/20/16 22:58 APTT 26.8 Sec. (24.2-36.6) 09/20/16 22:58 Fibrinogen 357 mg/dl (211-480) 09/21/16 14:15 Lupus Anticoagulant see below 09/21/16 14:15 Protein C Antigen 110 % (70-140) 09/21/16 14:15 APC Resistance 4.5 ratio (>=2.1) 09/21/16 14:15 Free Protein S 118 % normal (57-171) 09/21/16 14:15 Total Protein S 112 % (70-140) 09/21/16 14:15 Antithrombin III Ag 101 % (80-120) 09/21/16 14:15 Factor V Activity 108 % (65-150) 09/21/16 14:15 Carboxyhemoglobin 5.2 09/20/16 22:58 Sodium 138 mmol/L (137-145) 09/20/16 12:56 Potassium 3.9 mmol/L (3.6-5.0) 09/20/16 12:56 Chloride 102.5 mmol/L (98-107) 09/20/16 12:56 Carbon Dioxide 22 mmol/L (22-30) 09/20/16 12:56 Anion Gap 17 mmol/L 09/20/16 12:56 BUN 10 mg/dL (9-20) 09/20/16 12:56 Creatinine 1.0 mg/dL (0.8-1.5) 09/20/16 12:56 Estimated GFR > 60 ml/min 09/20/16 12:56 BUN/Creatinine Ratio 10.00 % 09/20/16 12:56 Glucose 104 mg/dL (75-100) H 09/20/16 12:56 Hemoglobin A1c 6.1 % (4-6) H 09/24/16 07:43 Lactic Acid 0.90 mmol/L (0.7-2.0) 09/21/16 14:15 Calcium 8.8 mg/dL (8.4-10.2) 09/20/16 12:56 C-Reactive Protein 0.50 mg/dL (0.00-1.30) 09/21/16 14:15 Triglycerides 94 mg/dL (2-149) 09/21/16 07:41 Cholesterol 163 mg/dL (50-199) 09/21/16 07:41 LDL Cholesterol Direct 132 mg/dL (50-130) H 09/21/16 14:15 HDL Cholesterol 36 mg/dL (40-59) L 09/21/16 07:41 Cholesterol/HDL Ratio 4.52 % 09/21/16 07:41 Urine Color Straw (Yellow) 09/20/16 23:26 Urine Turbidity Clear (Clear) 09/20/16 23:26 Urine pH 7.0 (5.0-7.0) 09/20/16 23:26 Ur Specific [place] 1.013 (1.003-1.030) 09/20/16 23:26 Urine Protein <15 mg/dl mg/dL (Negative) 09/20/16 23:26 Urine Glucose (UA) Neg mg/dL (Negative) 09/20/16 23:26 Urine Ketones Neg mg/dL (Negative) 09/20/16 23:26 Urine Blood Neg (Negative) 09/20/16 23:26 Urine Nitrite Neg (Negative) 09/20/16 23:26 Urine Bilirubin Neg (Negative) 09/20/16 23:26 Urine Urobilinogen 2.0 mg/dL (<2.0) 09/20/16 23:26 Ur Leukocyte Esterase Neg (Negative) 09/20/16 23:26 Urine WBC (Auto) < 1.0 /HPF (0.0-6.0) 09/20/16 23:26 Urine RBC (Auto) < 1.0 /HPF (0.0-6.0) 09/20/16 23:26 Urine Opiates Screen Presumptive negative 09/20/16 23:26 Urine Methadone Screen Presumptive negative 09/20/16 23:26 Ur Barbiturates Screen Presumptive negative 09/20/16 23:26 Ur Phencyclidine Scrn Presumptive negative 09/20/16 23:26 Ur Amphetamines Screen Presumptive negative 09/20/16 23:26 U Benzodiazepines Scrn Presumptive negative 09/20/16 23:26 Urine Cocaine Screen Presumptive negative 09/20/16 23:26 U Marijuana (THC) Screen Presumptive negative 09/20/16 23:26 Drugs of Abuse Note Disclamer 09/20/16 23:26 Plasma/Serum Alcohol < 0.01 gm% (0-0.07) 09/20/16 12:56 Proteinase 3 (PR3) Ab <1.0 AI (<1.0) 09/21/16 14:15 Myeloperoxidase Ab <1.0 AI (<1.0) 09/21/16 14:15 Sjogren's Antibody <1.0 AI (<1.0) 09/21/16 14:15 Scl-70 Scleroderma Ab <1.0 AI (<1.0) 09/21/16 14:15 Centromere B Antibody <1.0 AI (<1.0) 09/21/16 14:15 Cardiolipid IgG Ab <14 GPL (<=14) 09/21/16 14:15 Cardiolipid IgA Ab <11 APL (<=11) 09/21/16 14:15 Cardiolipid IgM Ab 17 MPL (<=12) H 09/21/16 14:15 Complement C3 142 mg/dL (90-180) 09/21/16 14:15 Complement C4 53 mg/dL (16-47) H 09/21/16 14:15 HIV 1&2 Antibody Rapid Non react (Non React) 09/21/16 14:15 HIV P24 Antigen Non react (Non React) 09/21/16 14:15
[2016-09-24] MEDS ORDERED: LOVENOX SUB-Q SCH (22:00)
--- NOTE | 2016-09-25 09:09 | Hem/Onc Consultation ---
History of Present Illness - Reason for Consult Consult date: 09/25/16 - History of Present Illness Consult dictated. Hypercoagulable workup done and so far negative but final result pending. Strongly recommended for the patient to quit smoking. We will follow-up as outpatient upon discharge. Past History Past Medical History: other (Nicotine Dependence, obesity) Past Surgical History: No surgical history, Other (reviewed) Social history: single, smoking Family history: diabetes, hypertension Medications and Allergies Allergies Allergy/AdvReac Type Severity Reaction Status Date / Time No Known Allergies Allergy Verified 09/20/16 12:43 Home Medications Medication Instructions Recorded Confirmed Last Taken Type Famotidine [Pepcid] 20 mg PO BID #60 tablet 08/22/13 09/24/16 Unknown Rx Loratadine [Claritin] 10 mg PO DAILY #30 tablet 08/22/13 09/24/16 Unknown Rx predniSONE [Deltasone] 50 mg PO QDAY #5 tab 08/22/13 09/24/16 Unknown Rx Active Meds: Active Medications Acetaminophen (Tylenol) 650 mg PO Q4H PRN PRN Reason: Pain, Mild (1-3) Last Admin: 09/24/16 18:19 Dose: 650 mg Albuterol (Proventil) 2.5 mg IH Q6HRT PRN PRN Reason: Shortness Of Breath Aspirin (Aspirin) 325 mg PO QDAY [facility] Last Admin: 09/24/16 10:11 Dose: 325 mg Atorvastatin Calcium (Lipitor) 40 mg PO QHS [facility] Last Admin: 09/24/16 21:25 Dose: 40 mg Bisacodyl (Dulcolax) 10 mg NE QDAY PRN PRN Reason: Constipation Enoxaparin Sodium (Lovenox) 40 mg SUB-Q QDAY@2200 [facility] Last Admin: 09/24/16 21:25 Dose: 40 mg Famotidine (Pepcid) 20 mg PO BID [facility] Last Admin: 09/24/16 21:25 Dose: 20 mg Loratadine (Claritin) 10 mg PO DAILY [facility] Last Admin: 09/24/16 10:11 Dose: 10 mg Magnesium Hydroxide (Milk Of Magnesia) 30 ml PO Q4H PRN PRN Reason: Constipation Metoclopramide HCl (Reglan) 10 mg PO Q6H PRN PRN Reason: Nausea And Vomiting Ondansetron HCl (Zofran) 4 mg IV Q8H PRN PRN Reason: N/V unrelieved by Reglan Promethazine HCl (Phenergan) 25 mg NE Q6H PRN PRN Reason: Nausea And Vomiting Sodium Chloride (Sodium Chloride Flush Syringe 10 Ml) 10 ml IV PRN PRN PRN Reason: LINE FLUSH Exam - Constitutional Vitals: Last Vital Signs Temp 98.1 F 09/25/16 00:00 Pulse 107 H 09/25/16 08:07 Resp 16 09/25/16 00:00 BP 109/67 09/25/16 00:00 Pulse Ox 98 09/25/16 00:00 Results - Labs lab Results: Laboratory Results - last 24 hr 09/21/16 09/21/16 09/21/16 14:15 14:15 14:15 Protein C Antigen Free Protein S Total Protein S Proteinase 3 (PR3) Ab <1.0 Myeloperoxidase Ab <1.0 Sjogren's Antibody Scl-70 Scleroderma Ab <1.0 Centromere B Antibody <1.0 09/21/16 09/21/16 09/21/16 14:15 14:15 14:15 Protein C Antigen 110 Free Protein S 118 Total Protein S 112 Proteinase 3 (PR3) Ab Myeloperoxidase Ab Sjogren's Antibody <1.0 Scl-70 Scleroderma Ab Centromere B Antibody 09/21/16 14:15 Protein C Antigen Free Protein S Total Protein S Proteinase 3 (PR3) Ab Myeloperoxidase Ab Sjogren's Antibody <1.0 Scl-70 Scleroderma Ab Centromere B Antibody
--- NOTE | 2016-09-25 10:07 | Discharge Summary ---
Providers - Providers Date of Admission: 09/20/16 23:31 Date of discharge: 09/25/16 Attending physician: LOUISE CLARK MD 09/20/16 23:35 Occupational Therapy Evaluate and Treat [CONS] Routine Comment: Reason For Exam: Neuro deficits Physical Therapy Evaluation and Treat [CONS] Routine Comment: Reason For Exam: Neuro deficits 09/21/16 10:51 Consult to Physician [CONS] Routine Consulting Provider: ANT NETTLES Reason For Exam: acute CVA Place consult to:: construction carpenter neurology Notified:: samira Phone number called:: [phone] Time called:: 10:58 09/24/16 12:46 Consult to Physician [CONS] Routine Consulting Provider: AVE PETERSON Reason For Exam: large CVA in a young male, hypercoag + Place consult to:: Dr. Peterson Notified:: office Phone number called:: [phone] Was contact made?: Yes If yes, spoke with:: Yudith Time called:: 13:27 Primary care physician: ELECTRIC METER TECHNICIAN Hospitalization Reason for admission: CVA Condition: Stable Hospital course: 35 YO Male with Nicotine Dependence, Obesity, presents to ED for evaluation. Pt states that he has been experiencing a headache and inability to hold objects in his left hand, as well as memory loss for the past 4 days. The patient states he is concerned he may have carbon monoxide poisoning because he fell asleep in his car with the fan on and windows rolled up. The patient states his car was outdoors and not in an enclosed space/garage. Pt denies fever, chills, CP, Palpitations, NVD, syncope, trauma, vision changes, vertigo, productive cough, recent ill contacts, unintentional weight loss, or night sweats. On admission CT scan of the brain and MRI which showed a large acute MCA infarct. Patient was seen by neurologist subsequently oncologist was consulted for hypercoagulable workup. A CINDA was done and did not reveal any thrombosis. Ejection fraction was 55-60%. The shell was O Wolfe prevention with aspirin and Lipitor. Secondary workup is ongoing. The patient is to follow-up with neurology and hematology outpatient. Home health was also recommended for the patient. Discharge diagnosis 1. Acute R MCA territory infarct 2. Nicotine dependence 3. Sickle cell trait Disposition: DC/TX HOME UNDER HOME HEALTH Time spent for discharge: 35 MINS Core Measure Documentation - Palliative Care Palliative Care/ Comfort Measures: Not Applicable - Core Measures Any of the following diagnoses?: stroke - VTE Discharge Requirements Deep Vein Thrombosis/Pulmonary Embolism Present on Admission: No - Stroke Discharge Requirements Statin for LDL = or >70 mg/dl on DC: Yes Anticoag for atrial fib/atrial flutter: Not Applicable Antithrombotic for ischemic stroke: Yes Exam - Physical Exam Narrative exam: VITAL SIGNS: Reviewed. GENERAL: The patient appeared well nourished and normally developed. Vital signs as documented. HEAD: No signs of head trauma. EYES: Pupils are equal. Extraocular motions intact. EARS: Hearing grossly intact. MOUTH: Oropharynx is normal. NECK: No adenopathy, no JVD. CHEST: Chest with clear breath sounds bilaterally. No wheezes, rales, or rhonchi. CARDIAC: Regular rate and rhythm. S1 and S2, without murmurs, gallops, or rubs. VASCULAR: No Edema. Peripheral pulses normal and equal in all extremities. ABDOMEN: Soft, without detectable tenderness. No sign of distention. No rebound or guarding, and no masses palpated. Bowel Sounds normal. MUSCULOSKELETAL: Good range of motion of all major joints. Extremities without clubbing, cyanosis or edema. NEUROLOGIC EXAM: Alert and oriented x 3. Mild left facial droop, No focal sensory or strength deficits. Speech normal. Follows commands. PSYCHIATRIC: Mood normal. SKIN: No rash or lesions. - Constitutional Vitals: Temp Pulse Resp BP Pulse Ox 98.1 F 107 H 16 109/67 98 09/25/16 00:00 09/25/16 08:07 09/25/16 00:00 09/25/16 00:00 09/25/16 00:00 Plan Activity: advance as tolerated, fall precautions Diet: low fat Special Instructions: smoking cessation, physical therapy, occupational therapy , home health RN, other (SPEECH THERAPY OUTPT) Follow up with: ZULLY TENA MD [Primary Care Provider] - 3-5 Days BRAD COBURN MD [Staff Physician] - [address] PETERSON MD [Staff Physician] - 7 Days Forms: Discharge Signature Page Prescriptions: AtorvaSTATin [Lipitor] 40 mg PO QHS #30 tablet Aspirin [Aspirin TAB] 325 mg PO QDAY #30 tablet Metoclopramide [Reglan TAB] 10 mg PO Q6H PRN #20 tablet PRN Reason: Nausea And Vomiting
[2016-09-25] MEDS: PEPCID PO SCH (10:44)
[2016-09-25] MEDS: ASPIRIN PO SCH (10:44)
[2016-09-25] MEDS: CLARITIN PO SCH (10:44)
[2016-09-25 13:33] VITALS: BP 128/61
--- NOTE | 2016-09-26 01:19 | Consultation ---
REFERRING PHYSICIAN: Dr. Nava. REASON FOR CONSULTATION: Rule out hypercoagulable state. HISTORY OF PRESENT ILLNESS: The patient is a 35-year-old male who presented to the hospital with headaches and inability to hold objects in his left hand. He also had evidence of memory loss. He during his hospital workup on his brain MRI, he was found to have enlarged acute right MCA territory infarct with mild sinusitis. The patient because of his young age and evidence of a CVA, hematology/oncology consult was called. The patient has been seen by neurology and hypercoaguable workup has been ordered by Dr. Topete. The patient denies any previous history of CVAs. Denies any family history of CVA. He does smoke cigarettes on a regular basis. PAST MEDICAL HISTORY: Otherwise unremarkable. FAMILY HISTORY: Positive for diabetes and hypertension. SOCIAL HISTORY: Drug: Positive for tobacco abuse. PHYSICAL EXAMINATION: GENERAL: The patient is awake, alert, oriented. HEAD AND ENT: Unremarkable. CHEST: Clear. CARDIOVASCULAR: Regular rate and rhythm. ABDOMEN: Soft, nontender. EXTREMITIES: There is no clubbing, cyanosis, or edema. LABORATORY DATA: Pertinent labs show the patient's platelet count on the to be mildly low at 136, otherwise hemoglobin 13.9 and hematocrit 40.9. Hypercoagulable workup was ordered. Protein S and protein C were within normal limits. No evidence of lupus anticoagulant. HIV was negative. Other hypercoaguable workup is pending at this time. ASSESSMENT: History of cardiovascular accident in this young patient due to tobacco abuse. PLAN: At this time, we agree with his hypercoagulable workup. I will follow him as outpatient once he had the workup back. Continue supportive care. JOB# [id number] LENNYS/NTS
== END 2016-09-25 15:26 | disposition home health service (06) | DRG 66 ==
LOC: ED 12:17 → 4A 23:31
PROVIDERS: ADMIT Internal Medicine; ATTEND Internal Medicine
DX: I63.9 Cerebral infarction, unspecified (principal); F17.200 Nicotine dependence, unspecified, uncomplicated; D57.3 Sickle-cell trait; E66.9 Obesity, unspecified; Z71.6 Tobacco abuse counseling; Z83.3 Family history of diabetes mellitus; Z82.49 Family history of ischemic heart disease and other diseases of the circulatory system; Z68.29 Body mass index [BMI] 29.0-29.9, adult
CPT/HCPCS: 36415; 70450; 70496; 70498; 70544; 70551; 80048; 80061; 80307; 80320; 81001; 82024; 82140; 82164; 82375; 83036; 83516; 83721; 85025; 85210; 85220; 85301; 85305; 85307; 85384; 85610; 85613; 85652; 85730; 86021; 86038; 86140; 86147; 86160; 86235; 87806; 93005; 93010; 93306; 93312; 93320; 93325; 93880; 99406; A9270-GY; G0480; G8978-GP; G8979-GP; J1650; J2250; J3010; Q9967